=== PATIENT | female | born 1980 | race Caucasian/White ===

== ENCOUNTER → 2022-06-18 | Outpatient (CLI) | payer OTHER ==
--- NOTE | 2022-06-18 12:18 | XR ---
EXAMINATION TYPE: XR shoulder complete LT DATE OF EXAM: 06/18/2022 CLINICAL HISTORY: pain COMPARISON: NONE TECHNIQUE: Three views of the left shoulder are obtained. FINDINGS: There is no acute fracture/dislocation evident. The acromioclavicular and glenohumeral cindy int spaces appear within normal limits. The visualized ribs are intact and unremarkable. IMPRESSION: 1. There is no acute fracture or dislocation. ICD 10 NO FRACTURE, INITIAL EVALUATION
== END | disposition home or self-care (01) ==
LOC: RADXRMAIN 11:56
PROVIDERS: ATTEND Emergency Medicine
DX: S46.012A Strain of muscle(s) and tendon(s) of the rotator cuff of left shoulder, initial encounter (principal)

== ENCOUNTER → 2022-06-20 | Outpatient (CLI) | payer OTHER ==
--- NOTE | 2022-06-20 20:34 | MR ---
EXAMINATION TYPE: MR shoulder LT wo con DATE OF EXAM: 06/20/2022 COMPARISON: Left shoulder x-ray 2 days ago HISTORY: Left shoulder pain, injury. TECHNIQUE: Multiplanar, multisequence imaging of the left shoulder is performed without contrast. FINDINGS: Rotator Cuff: Distal supraspinatus and infraspinatus tendons are intact. Rotator cuff muscle bulk is preserved. Acromioclavicular Joint: Mild narrowing. No significant spurring. Type II downsloping acromion. Glenohumeral Joint: Small joint effusion. No significant spurring. Labrum: The labrum appears grossly intact given limitation of non-arthrogram study. Biceps Tendon: The long head of biceps is in normal location within bicipital groove. Bone marrow signal: Subchondral cystic change involving the posterior lateral superior aspect humeral head. Focal significant diminished T1 and increased T2 signal involving the acromion with area of subtle di minished linear T1 and T2 signal coronal image 10 for reference suggestive of nondisplaced fracture i njury. Other: No additional significant abnormality is appreciated. IMPRESSION: 1. Subtle nondisplaced incomplete fracture of the acromion with surrounding osseous and adjacent soft tissue edema not clearly seen on radiographs 2 days earlier. 2. No rotator cuff or labral tear is seen.
== END | disposition home or self-care (01) ==
LOC: RADMRIMAIN 17:38
PROVIDERS: ATTEND Emergency Medicine
DX: S42.125A Nondisplaced fracture of acromial process, left shoulder, initial encounter for closed fracture (principal); S46.012A Strain of muscle(s) and tendon(s) of the rotator cuff of left shoulder, initial encounter; X58.XXXA Exposure to other specified factors, initial encounter